=== PATIENT | female | born 1930 | race Caucasian/White ===

== ENCOUNTER 2021-01-08 16:32 | Emergency (ER) | payer OTHER ==
[~2021-01-08] VITALS: Ht 167.6 cm; Wt 83.9 kg
[2021-01-08] MEDS ORDERED: NORVASC10 MG PO (16:47)
[2021-01-08] MEDS ORDERED: SERTRALINE HCL100 MG PO (16:47)
[2021-01-08] MEDS ORDERED: KAPSPARGO SPRIN25 MG PO (16:47)
[2021-01-08] MEDS ORDERED: JANTOVEN4 MG PO (16:47)
[2021-01-08] MEDS ORDERED: HYPERLIPIDEMIA (16:47)
[2021-01-08 17:25] VITALS: BP 149/74
== END 2021-01-08 17:26 | disposition home or self-care (01) ==
LOC: M.ERS 16:32
DX: U07.1 COVID-19 (principal); Z79.899 Other long term (current) drug therapy; Z79.01 Long term (current) use of anticoagulants; Z88.5 Allergy status to narcotic agent; Z88.6 Allergy status to analgesic agent